=== PATIENT | male | born 1985 | race Caucasian/White ===

== ENCOUNTER 2023-03-16 18:05 | Emergency (ER) | payer OTHER, SELFPAY ==
[2023-03-16 18:09] VITALS: BP 116/68
[2023-03-16] MEDS: ZOFRAN ODT (ORALLY DISINTEGRATING) 4 MG PO (18:18)
[2023-03-16 18:42] LABS: COVID-19 Antigen Negative (Negative)
--- NOTE | 2023-03-16 20:00 | ED.GENMED ---
History of Present Illness
General
Chief Complaint: Cold/Flu/URI Symptoms
Source: patient and spouse
Exam Limitations: none
Time Seen by Provider: 03/16/23 19:36
Nursing documentation reviewed up to this point in time: agreed with
Travel History
Have you had any contact with someone who has COVID-19?: No
Do you have any symptoms of coronavirus? Fever > 100 degrees, chills, cough, shortness of breath, sore throat, loss of taste or smell, muscle aches, or headache?: Yes
Symptoms:: fever
History of Present Illness
History of Present Illness:
pt is a 37 y/o M
has had ongoing issues with weight loss, vomiting, headaches; has had w/u for gastroparesis that was neg
'no one can figure it out'
started with vomiting 12 hours ago and developed gradual headache top of his head today as well, now headache is 9/10 worse with light and sound
nausea
vomited after zofran odt here
no neck pain, sob, cp, abd pain, diarrhea
he has a sore throat and nasal cognestion and had some nose bleeding as well today
Past History
Past History
ED Past Medical History: Other (weight loss, vomiting, headaches)
Social History
Tobacco: Smoker
Alcohol: None
Drug: None
Personal:
Living: with family
Review of Systems
Review of Systems
Allergies reviewed?: Yes
All Other Systems: Not applicable
Phy Exam
Physical Exam
Physical Exam:
GENERAL: Alert , in a dark room
head: NCAT
EYE: pupils equal and reactive
NECK: Supple no appreciated TATE, no stiffness, full rom
ENT: b/l TM s clear, pharynx erythematous but no tonsillar hypertrophy or exudates
nose with swollen erythematous mucosa
no active bleeding
CARDIAC: Regular rate and rhythm, no edema
LUNGS: Clear breath sounds bilaterally, no acute respiratory distress, no wheezes/rales/rhonchi, occ cough
ABDOMEN: Soft, without focal tenderness, no r/g, no cvat, normal bowel sounds
NEUROLOGICAL: Alert and oriented, no focal neuro deficits
SKIN: Warm and dry, skin intact.
MUSCULOSKELETAL: No edema, well perfused.
PSYCH: Normal and appropriate interaction.
Course
Orders/Labs/Results
Orders:
Orders
03/16/23 18:15
Ondansetron Orally Disint [Zofran Odt (Orally Disintegrating)] 4 mg .ROUTE .[facility]
03/16/23 18:17
COVID-19 Antigen Urgent
Source: Nasal Swab
INF RAPID [Influenza A+B Rapid Molecular] Urgent
LU Source: Nasal Swab
Specimen Description:
Ondansetron Orally Disint [Zofran Odt (Orally Disintegrating)] 4 mg PO NOW STA
03/16/23 19:59
0.9% Sodium Chloride 1000 ml [Nss] 1,000 ml IV BOLUS
Diphenhydramine [Benadryl] 25 mg IV NOW STA
Ketorolac [Toradol] 15 mg IV NOW STA
Metoclopramide [Reglan] 10 mg IV NOW STA
03/16/23 20:30
Comprehensive Metabolic Panel Urgent
Lipase Urgent
03/16/23 20:31
Complete Blood Count/With Diff Urgent
Abnormal Lab Results
03/16/23 03/16/23
20:30 20:31
WBC 12.0 H 10^3/uL
(4.8-10.8)
RBC 4.47 L 10^6/uL
(4.70-6.10)
Hct 37.9 L %
(39.0-52.0)
Abs Immat Gran (auto) 0.1 H 10^3/uL
(0-0.05)
Absolute Neuts (auto) 11.0 H 10^3/uL
(1.4-6.5)
Absolute Lymphs (auto) 0.3 L 10^3/uL
(1.2-3.4)
Neutrophils % 92.3 H %
(42.2-75.2)
Lymphocytes % 2.2 L %
(20.5-51.1)
Sodium 133 L mmol/L
(135-145)
Glucose 115 H mg/dl
(70-99)
03/16/23 20:31
03/16/23 20:30
Vital Signs
Initial and Last Documented VS:
Initial Vital Signs
Temp Pulse Resp BP Pulse Ox
99.3 F 95 20 116/68 98
03/16/23 18:09 03/16/23 18:09 03/16/23 18:09 03/16/23 18:09 03/16/23 18:09
Last Documented Vital Signs
Temp Pulse Resp BP Pulse Ox
99.3 F 95 20 112/61 98
03/16/23 18:09 03/16/23 18:09 03/16/23 18:09 03/16/23 22:39 03/16/23 22:39
MDM/Problems Addressed
Differential Diagnosis Includes:
influenza, covid, pneumonia, migraine
MDM/Problems Addressed:
37 y/o M with day 1 of headache, fever, sore throat, vomiting
his headache is c/w [id number] migraines that he has had
had ct head imaging previously here which was neg
ongoing w/u for headaches and vomiting outpatient, no diagnosis
this episode feels a little worse than previous because of the fever/sore throat/bodyaches
but headache was gradual and not worst sudden onset
on exam pt is febrrile 100.1 for me, in a dark room, mild photobphoiia
no neck stiffness
oropharynx slightly eyrthematous, no exudate
trace evidence of nose bleed, no activ ebleeding
lugns clear
abdomen notnender
neuro intact
influenza a pos
will send screening labs as pt reported vomiting 12 times today, give ivf, migraine therapy/nausea therapy
reassessed an dpt no longer has fever
tolerated some po
heaache greatly improved
recommend tylenol athome
d/c home.
zofran odt prn.
*Critical Care Note
Total Time (30-74mins, 75-104mins- exclusive of procedures): Not Applicable
ED Attending Note
-
Portions of this chart may have been created with voice recognition software.� Occasional wrong word or��sound alike� substitutions may have occurred due to the inherent limitations of voice recognition software.
Discharge Plan
Departure
Patient Disposition: Home (Routine Discharge)
Date of Disposition: 03/16/23
Time of Disposition: 22:20
Patient with high blood pressure during this ER visit?: No
Condition: Fair
Covid-19: Negative COVID-19
Discharge Problem:
Influenza A, Migraine
Instructions: Flu, Adult (DC), Migraines (DC)
Prescriptions:
New
ondansetron 4 mg tablet,disintegrating
4 mg PO Q8H PRN (Reason: vomiting) 2 Days Qty: 6 0RF
No Action
propranolol 80 mg capsule,extended release 24hr
80 mg PO HS Qty: 30 0RF
[id number] [Fioricet] 50-300-40 mg capsule
1 cap PO TID PRN (Reason: Pain) Qty: 20 0RF
Referrals:
UNKNOWN - PT DOES,NOT KNOW [Family Provider] -
Activity Restrictions/Additional Instructions:
You tested positive for influenza A. Take Tylenol every 6 hours, ibuprofen every 8 hours for fever and headaches and bodyaches. Drink plenty of fluids. If you are vomiting you can try Zofran every 8 hours as needed. Return for severe
dehydration, neck stiffness, trouble breathing, change in mental status, severe sudden worst headache of your life or any concerns
Make sure to stay home until you are fever free for 24 hours
Interventions
Interventions:
*Risk Screen - Suicide Last Done: 03/16/23 18:40
*General Assessment Last Done: 03/16/23 18:40
*Neglect/Abuse Screening Last Done: 03/16/23 18:40
*ED COVID-19 Vaccine History Last Done: 03/16/23 18:40
*Nursing Disposition Last Done: 03/16/23 22:39
ED- Pulmonary Assessment Last Done: 03/16/23 18:40
Discharge Date and Time
Discharge Date/Time: 03/16/23 22:40
[2023-03-16] MEDS: NSS 1000 IV (20:27)
[2023-03-16] MEDS: TORADOL 15 MG IV (20:28)
[2023-03-16] MEDS: BENADRYL 25 MG IV (20:29)
[2023-03-16] MEDS: REGLAN 10 MG IV (20:32)
[2023-03-16 20:37] LABS: % Basophils 0.2 % (0-2); % Immature Granulocytes 0.4 % (0-0.5); % Lymphocytes 2.2 % (20.5-51.1); % Monocytes 4.9 % (1.7-9.3); % Neutrophils 92.3 % (42.2-75.2); Absolute Immature Granulocytes 0.1 10^3/uL (0-0.05); Absolute Lymphocytes 0.3 10^3/uL (1.2-3.4); Absolute Monocytes 0.6 10^3/uL (0.1-0.6); Hematocrit 37.9 % (39.0-52.0); Mean Corp Hgb Conc. 34.3 g/dL (33.0-37.0); Mean Corpuscular Hgb 29.1 pg (27.0-31.0); Mean Corpuscular Volume 84.8 fL (80.0-94.0); Mean Platelet Volume 10.4 fL (7.4-10.4); Nucleated Red Blood Cells % 0 % (-); Platelet Count 155 10^3/uL (130-400); Red Blood Cell Count 4.47 10^6/uL (4.70-6.10); Red Cell Dist. Width 13.1 % (11.5-14.5)
[2023-03-16 21:00] LABS: ALT (SGPT) 35 U/L (0-50); AST (SGOT) 36 U/L (17-59); Albumin 4.5 g/dl (3.5-5.0); Alkaline Phosphatase 60 U/L (38-126); Blood Urea Nitrogen 12 mg/dl (9-20); Carbon Dioxide 29 mmol/L (22-30); Chloride 98 mmol/L (98-107); Glucose 115 mg/dl (70-99); Lipase 45 U/L (23-300); Potassium 4.6 mmol/L (3.5-5.1); Sodium 133 mmol/L (135-145); Total Bilirubin 0.8 mg/dl (0.2-1.3); Total Protein 6.9 g/dl (6.3-8.2); eGFR > 60.00
[2023-03-16 22:19] VITALS: BP 112/61
[2023-03-16 22:39] VITALS: BP 112/61
== END 2023-03-16 22:40 | disposition home or self-care (01) ==
LOC: EMR 18:05
PROVIDERS: Physician Assistant; Student in an Organized Health Care Education/Training Program; EMERGENCY PHYSICIAN Emergency Medicine
DX: J10.1 Influenza due to other identified influenza virus with other respiratory manifestations (principal); G43.909 Migraine, unspecified, not intractable, without status migrainosus; F17.200 Nicotine dependence, unspecified, uncomplicated; Z11.52 Encounter for screening for COVID-19
CPT/HCPCS: 99284; 96374; 96375 ×2; 80053; 83690; 85025; 87502; 87811